=== PATIENT | male | born 1985 | race Caucasian/White ===

== ENCOUNTER 2022-11-05 14:53 | Emergency (ER) | payer MEDICAID, SELFPAY ==
[2022-11-05] VITALS (14 sets, daily range): BP systolic 108–117; BP diastolic 68–77; PULSE 64–78; RESP 16; TEMP 35.8; O2SAT 96–99; BMI 29.0
--- NOTE | 2022-11-05 15:30 | ED_ITS ---
HPI - General Adult General Date Seen: 11/05/22 Chief complaint: Nausea/Vomiting Stated complaint: Diarrhea Vomiting Dizziness Possible Med Related Time Seen by Provider: 11/05/22 15:08 Source: patient Mode of arrival: ambulatory Limitations: no limitations History of Present Illness HPI narrative: Patient is a 37-year-old male who started on Augmentin a couple of days ago for a right-sided ear infection. This morning, he developed vomiting and diarrhea as well as feeling dizzy. He is worried about possible allergic reaction. He does not have any rash, wheezing, shortness of breath, swelling, or other symptoms suggestive of allergic reaction. He has taken amoxicillin in the past without difficulty. His says that they realize the vomiting and diarrhea could be a viral infection, but because none of their children were sick, they felt it was more likely to be an allergic reaction. His ears feeling somewhat better but is still painful. He has not had any fevers and no significant abdominal pain. No bloody stools. He says he has not been able to keep much of anything down today, a little bit of water. Denies any significant medical history aside from a cough which he says has been chronic for the past 3 years. He quit smoking over 10 years ago. Denies significant alcohol use. Related Data Home Medications Medication Instructions Recorded Confirmed albuterol sulfate 90 mcg/actuation inhalation 11/05/22 aerosol inhaler (Ventolin HFA) escitalopram oxalate 10 mg tablet mg 11/05/22 Previous Rx's Medication Instructions Recorded amoxicillin 875 mg-potassium 1 tab PO BID 5 days #10 tabs 11/02/22 clavulanate 125 mg tablet cefdinir 300 mg capsule 300 mg PO BID #20 caps 11/05/22 Allergies Allergy/AdvReac Type Severity Reaction Status Date / Time No Known Drug Allergies Allergy Verified 11/05/22 15:06 Review of Systems Status of ROS: Reports: 10 or more systems reviewed and unremarkable except as noted in History and below PFSH [facility] Social History Smoking Status: Former smoker How often do you have a drink containing alcohol: monthly or less AUDIT-C Alcohol total score: 1 Non-prescribed substance use: denies use Exam Narrative: Exam Narrative: Vital signs as noted above. In general, an alert, nontoxic male. Breathing easily. Head: Normocephalic, atraumatic. Eyes: Pupils are equal reactive. Extraocular movements are full. Conjunctivae are normal. ENT: Mucous membranes are moist. Throat is normal. Bilateral TMs are erythematous, landmarks seen on the left. On the right, TM is dull, bulging. Neck: Supple without lymphadenopathy. Heart: Regular rate and rhythm. No murmur or rub. Lungs: Clear bilaterally. No increased work of breathing, crackles or wheezes. Abdomen: Soft and nontender. Extremities: Well perfused. No edema. No calf tenderness. Pulses intact. Neurologic: Patient is alert and oriented to person and place. Speech is fluent. Face is symmetric. Moves all extremities equally. Affect: Normal. Skin: Warm and dry. Well perfused. Const: Vital Signs, click to edit/add: Vital Signs - 24 hr 11/05/22 15:00 11/05/22 15:59 11/05/22 16:00 Temperature 96.5 F L Pulse Rate 66 64 Pulse Rate [Right Pulse Oximeter] 78 Respiratory Rate 16 Blood Pressure Blood Pressure [Ri ght Upper Arm] 117/77 Pulse Oximetry 97 97 97 Oxygen Delivery Me thod Room Air 11/05/22 16:02 11/05/22 16:15 11/05/22 16:30 Temperature Pulse Rate 67 66 70 Pulse Rate [Right Pulse Oximeter] Respiratory Rate Blood Pressure 110/68 Blood Pressure [Ri ght Upper Arm] Pulse Oximetry 98 99 98 Oxygen Delivery Me thod 11/05/22 16:32 11/05/22 16:45 11/05/22 17:00 Temperature Pulse Rate 69 69 66 Pulse Rate [Right Pulse Oximeter] Respiratory Rate Blood Pressure 113/72 Blood Pressure [Ri ght Upper Arm] Pulse Oximetry 97 97 97 Oxygen Delivery Me thod 11/05/22 17:01 11/05/22 17:15 Temperature Pulse Rate 65 73 Pulse Rate [Right Pulse Oximeter] Respiratory Rate Blood Pressure 109/71 Blood Pressure [Ri ght Upper Arm] Pulse Oximetry 96 96 Oxygen Delivery Me thod Documenting provider has reviewed patient's vital signs: yes Course Course Hospital Course: Discussed with them that while the GI symptoms could possibly be attributable to Augmentin as sometimes people experience stomach upset with Augmentin, I do not suspect that this is likely a true allergic reaction with only vomiting and diarrhea. I think it is certainly reasonable to switch to a different antibiotic to see if his stomach is improved, but also discussed that the GI symptoms could certainly be a separate issue, and as such may take a day or 2 to completely improve. In the meantime, we will go ahead and place an IV here and give some fluids, check some labs. His abdominal exam is benign, have less concern for an acute process such as appendicitis, diverticulitis, bowel obstruction, colitis, etcetera. In the absence of true allergic symptoms, I do not see a need to treat with antihistamines, I do not think they are probably going to be significantly beneficial. Patient had a L of normal saline, did develop headache while here requested some medicine for that so he had some Toradol. His labs suggest a mild infectious process with a white count of 12, left shift of 90% neutrophils. His CRP is mildly elevated at 2.7. LFT show a mild elevation in transaminases with an AST of 38, ALT of 73. LFTs are otherwise normal. BUN is 21, creatinine is 1 and electrolytes are normal, potassium is 4.2. Lipase is normal at 122. He has been able to keep some Sprite down here, feeling improved. Continues to denies significant abdominal pain. I will switch him to cefdinir, will see if he tolerates that better. I am giving him some Zofran in case he needs that. Would recommend staying with clear liquids today, advance diet as able. If he has significant abdominal pain, uncontrolled vomiting, fever, bloody stools or other new symptoms, return at any time to the emergency department. Otherwise, primary care follow-up if not improved over the next couple of days. Vital Signs Vital signs: Initial Vital Signs Temperature 96.5 F L 11/05/22 15:00 Temperature Source Temporal Artery Scan 11/05/22 15:00 Pulse Rate 78 11/05/22 15:00 Respiratory Rate 16 11/05/22 15:00 Blood Pressure 117/77 11/05/22 15:00 Blood Pressure Mean 90 11/05/22 15:00 Blood Pressure Position Sitting 11/05/22 15:00 Pulse Oximetry 97 11/05/22 15:00 Oxygen Delivery Method 11/05/22 15:00 Vital Signs Temperature 96.5 F L 11/05/22 15:00 Pulse Rate 78 11/05/22 15:00 Respiratory Rate 16 11/05/22 15:00 Blood Pressure 117/77 11/05/22 15:00 Pulse Oximetry 97 11/05/22 15:00 Oxygen Delivery Method 11/05/22 15:00 Temperature 96.5 F L 11/05/22 15:00 Pulse Rate 73 11/05/22 17:15 Respiratory Rate 16 11/05/22 15:00 Blood Pressure 109/71 11/05/22 17:01 Pulse Oximetry 96 11/05/22 17:15 Oxygen Delivery Method 11/05/22 15:00 Medical Decision Making Lab Data Labs: Lab Results 11/05/22 11/05/22 11/05/22 Range/Units 15:35 15:35 15:35 WBC 12.22 H (4.50-11.00) K/uL RBC 5.45 (4.30-5.90) m/uL Hgb 16.6 (13.5-17.5) gm/dL Hct 48.5 (37.0-53.0) % MCV 89 (80-100) fL MCH 31 (26-34) pg MCHC 34 (32-36) gm/dL RDW Coeff of Osvaldo 12.9 (11.5-15.5) % Plt Count 290 (140-440) K/uL Neut % (Auto) 90.9 H (42.0-72.0) % Lymph % (Auto) 6.0 L (20-44) % [place] % (Auto) 2.5 (0.0-11.0) % Eos % (Auto) 0.4 (0.0-7.0) % Baso % (Auto) 0.0 (0.0-3.0) % Neut # (Auto) 11.10 H (1.7-7.0) K/uL Lymph # (Auto) 0.70 L (0.90-2.90) K/uL [place] # (Auto) 0.30 (0.00-0.90) K/UL Eos # (Auto) 0.00 (0.00-0.50) K/uL Baso # (Auto) 0.00 (0.00-0.30) K/uL Sodium 139 (135-149) mmol/L Potassium 4.2 (3.6-5.1) mmol/L Chloride 105 (96-114) mmol/L Carbon Dioxide 25 (20-32) mmol/L BUN 21 (5-24) mg/dL Creatinine 1.0 (0.5-1.5) mg/dL Estimated Creat Clear 96.40 Estimated GFR 101 ml/min Glucose 116 H (60-115) mg/dL Calcium 9.7 (8.4-10.6) mg/dL Total Bilirubin 0.9 (0.1-1.5) mg/dL Direct Bilirubin 0.2 (0.0-0.5) mg/dL AST 38 H (12-35) U/L ALT 73 H (4-50) U/L Alkaline Phosphatase 97 (40-150) U/L C-Reactive Protein 2.7 H (0.5-1.0) mg/dL Total Protein 9.1 H (6.0-8.3) g/dL Albumin 4.9 (3.3-5.0) g/dL Lipase 122 (23-300) U/L Discharge Plan Discharge Clinical Impression: Vomiting and diarrhea, Otitis media Patient Disposition: Home, Self-Care Condition: Improved Instructions: Acute Nausea and Vomiting (ED) Additional Instructions: Clear liquids today, advance as able. Zofran if needed. Return for severe abdominal pain, uncontrolled vomiting, fever, bloody stools or other worsening. if you are not improved in 48 hours, return or see your clinic. D/C the Augmentin, start Cefdinir for ear infection. Prescriptions: New cefdinir 300 mg capsule 300 mg PO BID Qty: 20 0RF No Action amoxicillin-pot clavulanate 875-125 mg tablet 1 tab PO BID 5 Days Qty: 10 0RF albuterol sulfate [Ventolin HFA] 90 mcg/actuation HFA aerosol inhaler INHALATION Label Comments: INHALE 2 PUFFS INTO THE LUNGS EVERY 6 HOURS NEEDED FOR SHORTNESS OF BREATH / DYSPNEA escitalopram oxalate 10 mg tablet Label Comments: TAKE 1 TABLET BY MOUTH EVERY DAY Follow Up/Referrals: Provider,Not a Local [Primary Care Provider] - Stand Alone Forms: My[facility] Info Instructions
[2022-11-05 15:42] LABS: Eosinophils Percent Auto 0.4 % (0.0-7.0); Hematocrit 48.5 % (37.0-53.0); Hemoglobin* 16.6 gm/dL (13.5-17.5); Immature Granulocytes Pct Auto 0.2 %; Mean Corpuscular HGB Conc 34 gm/dL (32-36); Mean Corpuscular Hemoglobin 31 pg (26-34); Mean Corpuscular Volume 89 fL (80-100); Monocytes Percent Auto 2.5 % (0.0-11.0); Neutrophils Percent Auto 90.9 % (42.0-72.0); Platelet Count* 290 K/uL (140-440); RDW Coefficient of Variation % 12.9 % (11.5-15.5); Red Blood Count 5.45 m/uL (4.30-5.90); White Blood Count* 12.22 K/uL (4.50-11.00)
[2022-11-05 15:43] LABS: Slide Review Reflex No
[2022-11-05] MEDS: ONDANSETRON 2 MG/ML inj 4 MG IVP (15:48)
[2022-11-05] MEDS: 0.9 % SODIUM CHLORIDE 1000 ml 1,000 ML IV (15:48)
[2022-11-05 15:55] LABS: Albumin* 4.9 g/dL (3.3-5.0); Chloride* 105 mmol/L (96-114)
[2022-11-05 15:56] LABS: Potassium* 4.2 mmol/L (3.6-5.1); Sodium* 139 mmol/L (135-149)
[2022-11-05 15:58] LABS: Alanine Aminotransferase* 73 U/L (4-50); Alkaline Phosphatase* 97 U/L (40-150); Aspartate Amino Transferase* 38 U/L (12-35); Bilirubin Direct* 0.2 mg/dL (0.0-0.5); Bilirubin Total* 0.9 mg/dL (0.1-1.5); Estimated Glomerular Filt Rate 101 ml/min; Lipase* 122 U/L (23-300); Total Protein* 9.1 g/dL (6.0-8.3)
[2022-11-05 15:59] LABS: Blood Urea Nitrogen* 21 mg/dL (5-24); Carbon Dioxide* 25 mmol/L (20-32); Glucose* 116 mg/dL (60-115)
[2022-11-05 16:00] LABS: Calcium* 9.7 mg/dL (8.4-10.6)
[2022-11-05 16:02] LABS: C Reactive Protein* 2.7 mg/dL (0.5-1.0)
[2022-11-05] MEDS: KETOROLAC 15 MG/ML inj IVP (16:22)
== END 2022-11-05 18:08 | disposition home or self-care (01) ==
PROVIDERS: Emergency Provider Emergency Medicine
DX: R11.10 Vomiting, unspecified (principal); R19.7 Diarrhea, unspecified; H66.93 Otitis media, unspecified, bilateral
CPT/HCPCS: 36415; 80048; 80076; 83690; 85025; 86140; 96374; 96375; 99284; J1885; J2405; J7030

== ENCOUNTER 2024-01-01 20:21 | Emergency (ER) | payer MEDICAID, SELFPAY ==
[2024-01-01 20:29] VITALS: BP 154/96; PULSE 69; RESP 16; TEMP 36.4; O2SAT 97; BMI 28.1
--- NOTE | 2024-01-01 21:27 | ED.EAR ---
HPI - Ear Problem General Date Seen: 01/01/24 Chief complaint: Ear/Nose/Throat Problem Stated complaint: L ear pain Time Seen by Provider: 01/01/24 21:24 Source: patient Mode of arrival: ambulatory Limitations: no limitations History of Present Illness HPI Narrative: Patient is a 38-year-old male presenting for left ear pain. States symptoms have been going on for the past 2 days. Does admit having a goals of the pain for the past few weeks. Took some Tylenol this morning without much relief. Previously has he pack for sinus infection last week. Does state there is some hearing issues the left ear. Says ear feels plugged. Denies fevers chills, headache, vision changes, abdominal pain, lightheadedness, dizziness. No pain behind the ear or when pulling on the ear. Related Data Home Medications Medication Instructions Recorded Confirmed albuterol sulfate 90 mcg/actuation inhalation 11/05/22 12/18/23 aerosol inhaler (Ventolin HFA) Allergies Allergy/AdvReac Type Severity Reaction Status Date / Time amoxicillin [From Augmentin] Allergy Intermediate Nausea/Vomi Verified 12/18/23 15:50 ting clavulanic acid Allergy Intermediate Nausea/Vomi Verified 12/18/23 15:50 [From Augmentin] ting Review of Systems Narrative: Pertinent systems reviewed and negative unless stated HPI PFSH PFSH Medical History Allergic rhinitis ?J30.9 - Allergic rhinitis, unspecified (ICD-10) Social History Smoking Status: Never smoker How often do you have a drink containing alcohol: monthly or less AUDIT-C Alcohol total score: 1 Non-prescribed substance use: denies use Exam Narrative: Exam Narrative: Const: Well-nourished, Well-developed, in mild distress Eyes: PERRL, no conjunctival injection, and symmetrical lids HENT: Atraumatic external nose and ears. Moist mucous membranes. Erythematous left tympanic membrane with normal right, normal appearing external auditory canals. No tenderness to mastoid processes. Neck: Symmetric, trachea midline, No thyromegaly. MSK:Extremities w/o deformity, Normal Active ROM Skin: Warm, Dry. No rashes or lesions. Neuro: Normal Muscle tone, No focal neurological deficits. Psych: Awake, Alert, & Oriented x3. Appropriate mood and affect. Const: Vital Signs, click to edit/add: Vital Signs - 24 hr 01/01/24 20:29 Temperature 97.6 F Pulse Rate [Pulse Oximeter] 69 Respiratory Rate 16 Blood Pressure [Ri ght Upper Arm] 154/96 H Pulse Oximetry 97 Oxygen Delivery Me thod Room Air Course Vital Signs Vital signs: Initial Vital Signs Temperature 97.6 F 01/01/24 20:29 Temperature Source Temporal Artery Scan 01/01/24 20:29 Pulse Rate 69 01/01/24 20:29 Respiratory Rate 16 01/01/24 20:29 Blood Pressure 154/96 H 01/01/24 20:29 Blood Pressure Mean 115 H 01/01/24 20:29 Blood Pressure Position Sitting 01/01/24 20:29 Pulse Oximetry 97 01/01/24 20:29 Oxygen Delivery Method Room Air 01/01/24 20:29 Vital Signs Temperature 97.6 F 01/01/24 20:29 Pulse Rate 69 01/01/24 20:29 Respiratory Rate 16 01/01/24 20:29 Blood Pressure 154/96 H 01/01/24 20:29 Pulse Oximetry 97 01/01/24 20:29 Oxygen Delivery Method Room Air 01/01/24 20:29 Temperature 97.6 F 01/01/24 20:29 Pulse Rate 69 01/01/24 20:29 Respiratory Rate 16 01/01/24 20:29 Blood Pressure 154/96 H 01/01/24 20:29 Pulse Oximetry 97 01/01/24 20:29 Oxygen Delivery Method Room Air 01/01/24 20:29 Medical Decision Making MDM Narrative Medical decision making narrative: Patient is a 38-year-old male presenting for otitis media. No signs of otitis externa at this time. No signs of mastoiditis. Otherwise doing well. Has had multiple ear infections in the past with his last 1 being 1 year ago. He will be discharged with azithromycin through [facility]. He is agreeable to this plan. Discharge Plan Discharge Clinical Impression: Otitis media Patient Disposition: Home, Self-Care Condition: Stable Instructions: Ear Infection (ED) Additional Instructions: Take Tylenol ibuprofen for pain. Take antibiotics as directed. Return for new worsening symptoms. Prescriptions: No Action albuterol sulfate [Ventolin HFA] 90 mcg/actuation HFA aerosol inhaler INHALATION Patient Comments: INHALE 2 PUFFS INTO THE LUNGS EVERY 6 HOURS NEEDED FOR SHORTNESS OF BREATH / DYSPNEA Follow Up/Referrals: Provider,Not a Local [Primary Care Provider] - Stand Alone Forms: [employer] Info Instructions
== END 2024-01-01 21:42 | disposition home or self-care (01) ==
LOC: ED 21:32
PROVIDERS: Emergency Provider Student in an Organized Health Care Education/Training Program
DX: H66.92 Otitis media, unspecified, left ear (principal)
CPT/HCPCS: 99282; 99283